=== PATIENT | female | born 1970 | race Two or more races ===

== ENCOUNTER 2016-09-22 20:06 | Emergency (ER) | payer MEDICAID, OTHER ==
[~2016-09-22] VITALS: Ht 172.7 cm; Wt 96.6 kg
[2016-09-22 21:07] LABS: Basophils # (auto) 0 uL; Basophils % (auto) 0.4 % (0.0-2.0); Eosinophils # (auto) 0.3 uL; Eosinophils % (auto) 3.5 % (0.0-7.0); Hemoglobin 14.4 g/dL (12.2-16.2); Lymphocytes # (auto) 1.8 uL; Mean Corpuscular Hemoglobin 28.6 pg (28.0-32.0); Mean Corpuscular Hgb Conc. 33.6 g/dL (32.0-36.0); Mean Corpuscular Volume 85.2 fL (80.0-100.0); Mean Platelet Volume 9.4 fL (7.4-10.4); Monocytes # (auto) 0.5 uL; Monocytes % (auto) 5.9 % (0.0-12.0); Neutrophils % (auto) 66.2 % (37.0-80.0); Platelet Count (auto) 225 10^3/uL (140-450); Red Cell Distribution Width 13.4 % (11.6-16.0); White Blood Cell 7.6 10^3/uL (4.4-10.8)
[2016-09-22 21:33] LABS: Albumin 3.7 g/dL (3.4-5.0); Anion Gap 10 (5-15); Blood Urea Nitrogen 11 mg/dL (7-18); Calcium 8.5 mg/dL (8.5-10.1); Carbon Dioxide 25 mmol/L (21-32); Chloride 105 mmol/L (98-107); Glucose 95 mg/dL (74-106); Potassium 3.6 mmol/L (3.5-5.1); Sodium 140 mmol/L (136-145)
[2016-09-22 21:35] LABS: Aspartate Aminotransferase 36 U/L (15-37); BUN/Creatinine Ratio 16.7; GFR African American 125 mL/min; GFR Non-African American 103 mL/min
[2016-09-22 21:42] LABS: Urine Bilirubin Negative (Negative); Urine Blood Negative /uL (Negative); Urine Color Yellow (Yellow); Urine Glucose Normal (Normal); Urine Ketone Negative (Negative); Urine Nitrite Negative (Negative); Urine RBC <1 /hpf (0 - 4); Urine Squamous Epithelial Cell FEW /hpf (<5); Urine Urobilinogen Normal (Negative)
[2016-09-22 21:50] LABS: Alkaline Phosphatase 93 U/L (45-117); Bilirubin, Total 0.4 mg/dL (0.2-1.0); Total Protein 8.3 g/dL (6.4-8.2)
[2016-09-22] MEDS ORDERED: ASPirin 81 mg TAB PO ONE (22:15)
[2016-09-22 22:17] LABS: INR 0.96 (0.9-1.15); Partial Thromboplastin Time 24.6 sec (22.64-33.71); Prothrombin Time 10.4 sec (9.37-12.3)
[2016-09-22 22:44] LABS: Amylase 61 U/L (25-115)
[2016-09-22 23:10] VITALS: BP 102/76
== END 2016-09-22 23:23 | disposition home or self-care (01) ==
LOC: ER 20:06
DX: R07.89 Other chest pain (principal)
CPT/HCPCS: 36415; 71020; 80053; 81001; 81025; 82150; 83690; 84484; 85025; 85379; 85610; 85730; 93005

== ENCOUNTER 2022-12-09 20:23 | Emergency (ER) | payer MEDICAID ==
[~2022-12-09] VITALS: Ht 170.2 cm; Wt 102.3 kg
[2022-12-09 21:51] VITALS: BP 128/78
[2022-12-09] MEDS ORDERED: KETOROLAC TROMETH 30 MG/ML 1ML VIAL IM ONE (22:15)
[2022-12-10] MEDS ORDERED: PERCOT PO (01:14)
== END 2022-12-10 01:28 | disposition home or self-care (01) ==
LOC: ER 20:23
DX: M79.605 Pain in left leg (principal); G89.29 Other chronic pain
CPT/HCPCS: 93971; 96372; 99285; J1885